=== PATIENT | female | born 1965 | race Caucasian/White ===

== ENCOUNTER 2016-08-10 22:19 | Emergency (ER) | payer MEDICAID ==
[~2016-08-10] VITALS: Ht 157.5 cm; Wt 69.0 kg
[2016-08-11] MEDS ORDERED: KETOROLAC 60MG/2ML VIAL IM ONE (04:30)
[2016-08-11 04:38] LABS: BASOPHILS % 0.7 % (0.0-2.0); HEMATOCRIT. 38.5 % (36.0-48.0); HEMOGLOBIN. 13.4 g/dL (12.0-16.0); LYMPHOCYTES % 43.3 % (20.0-50.0); MEAN CORPUSCULAR HEMOGLOBIN 32.4 pg (28.0-32.0); MEAN CORPUSCULAR HGB CONC 34.9 g/dL (31.0-37.0); MEAN CORPUSCULAR VOLUME 92.8 fL (81.0-99.0); MEAN PLATELET VOLUME 8.6 fl (7.4-10.4); MONOCYTES % 8.5 % (2.0-8.0); NEUTROPHILS % 41.5 % (40.0-76.0); PLATELET 227 x1000/uL (130-400); RED BLOOD CELL COUNT 4.15 mill/uL (4.2-5.4); RED CELL DISTRIBUTION WIDTH 12.6 % (11.6-14.6)
[2016-08-11 04:44] LABS: CHLORIDE 105 mEq/L (98-107); INDEX HEMOLYSI 1 (1-3); INDEX ICTERIC 1 (1-4); INDEX LIPEMIC 1 (1-3)
[2016-08-11 04:52] LABS: ALBUMIN 3.3 g/dL (3.4-5.0); ANION GAP 9; CALCIUM 8.6 mg/dL (8.5-10.1); CARBON DIOXIDE 31 mEq/L (21-32); eGFR > 60 mL/min (>60)
[2016-08-11 06:18] LABS: ALANINE AMINOTRANSFERASE 27 IU/L (13-61); LIPASE 168 IU/L (73-393); UREA NITROGEN BLOOD 8 mg/dL (7-21)
[2016-08-11 07:06] LABS: CLARITY URINE CLEAR (CLEAR); COLOR URINE YELLOW (YELLOW); GLUCOSE URINE NEGATIVE (NEGATIVE); KETONES URINE NEGATIVE (NEGATIVE); LEUKOCYTE ESTERASE URINE NEGATIVE (NEGATIVE); NITRITE URINE NEGATIVE (NEGATIVE); OCCULT BLOOD URINE NEGATIVE (NEGATIVE); PH URINE 6.5 (4.5-8.0); PROTEIN URINE NEGATIVE (NEGATIVE); SPECIFIC GRAVITY URINE 1.013 (1.005-1.030); UROBILINOGEN URINE 0.2 E.U./dL (0.2-1.0)
[2016-08-11 07:40] VITALS: BP 99/63
== END 2016-08-11 07:42 | disposition home or self-care (01) ==
LOC: ER 22:22
DX: G44.89 Other headache syndrome (principal); R20.0 Anesthesia of skin; R20.2 Paresthesia of skin; G24.5 Blepharospasm; K21.9 Gastro-esophageal reflux disease without esophagitis; M54.2 Cervicalgia; R06.02 Shortness of breath; R20.9 Unspecified disturbances of skin sensation
CPT/HCPCS: 36415; 80053; 81003; 83690; 85025; 96372; 99284; J1885